=== PATIENT | male | born 1990 | race Caucasian/White ===

== ENCOUNTER 2023-09-27 17:55 | Emergency (ER) | payer OTHER ==
--- NOTE | 2023-09-27 18:17 | ED ---
Skin/Abscess/FB HPI - General Source: patient, RN notes reviewed Mode of arrival: ambulatory Limitations: no limitations <Ying Hoffman - Last Filed: 09/27/23 18:16> - General Source: RN notes reviewed <Nicole Pate - Last Filed: 09/27/23 23:15> - General Stated complaint: Rash Time Seen by Provider: 09/27/23 18:16 - History of Present Illness Initial comments: Quick note: 33-year-old male presented to the ER with chief complaint of a rash. Patient states he has been on for the past 2 weeks and his skin has been getting worse. He was seen by urgent care and prescribed amoxicillin and steroids. He states urgent care told him it was a strep rash. He states the rash is everywhere and pruritic. He denies any fevers. (Ying Hoffman) 33-year-old male presenting to the ER with rash x 2 weeks. Patient states he was diagnosed with post strep rash at urgent care 4 days ago and has been taking amoxicillin and steroids. He reports that, despite taking the medications, the rash is worsening and is extremely itchy. States the rash is everywhere including trunk, and extremities, face, and palms and soles. States he had a sore throat prior to the rash. Denies recent travel, recent hiking or exposure to brush. States he believes he is up-to-date on his vaccinations. Denies new lotions, soaps, detergents, medications. Denies fever or nausea and vomiting. (Nicole Pate) - Related Data Allergies Allergy/AdvReac Type Severity Reaction Status Date / Time No Known Allergies Allergy Verified 09/27/23 18:20 Review of Systems ROS Other: All systems not noted in ROS Statement are negative. <Ying Hoffman - Last Filed: 09/27/23 18:16> ROS Other: All systems not noted in ROS Statement are negative. <Nicole Pate - Last Filed: 09/27/23 23:15> ROS Statement: Those systems with pertinent positive or pertinent negative responses have been documented in the HPI. General Exam <Ying Hoffman - Last Filed: 09/27/23 18:16> General appearance: alert, in no apparent distress Head exam: Present: atraumatic, normocephalic, normal inspection Eye exam: Present: normal appearance, PERRL, EOMI. Absent: scleral icterus, conjunctival injection, periorbital swelling ENT exam: Present: normal exam, mucous membranes moist Neck exam: Present: normal inspection. Absent: tenderness, meningismus, lymph adenopathy Respiratory exam: Present: normal lung sounds bilaterally. Absent: respiratory distress, wheezes, rales, rhonchi, stridor Cardiovascular Exam: Present: regular rate, normal rhythm, normal heart sounds. Absent: systolic murmur, diastolic murmur, rubs, gallop, clicks Psychiatric exam: Present: normal affect, normal mood Skin exam: Present: warm, dry, rash (Diffuse maculopapular rash present on trunk, back, upper and lower extremities, palms, and soles. There is no warmth or drainage.) <Nicole Pate - Last Filed: 09/27/23 23:15> - General Exam Comments Initial Comments: Visual Physical Exam Vital signs reviewed General: Well-appearing, nontoxic, no acute distress. Head: Normocephalic, atraumatic Eyes: PERRLA, EOMI ENT: Airway patent Chest: Nonlabored breathing Skin: Rash on bilateral legs and torso normal skin tone Neuro: Alert and oriented 3 Musculoskeletal: No gross abnormalities (Ying Hoffman) Course Vital Signs 09/27/23 09/27/23 18:16 22:48 Temperature 98.6 F 98.5 F Pulse Rate 79 72 Respiratory 18 18 Rate Blood Pressure 140/87 131/78 O2 Sat by Pulse 99 99 Oximetry Medical Decision Making <Ying Hoffman - Last Filed: 09/27/23 18:16> - Lab Data Result diagrams: 09/27/23 20:40 09/27/23 20:40 <Nicole Pate - Last Filed: 09/27/23 23:15> - Medical Decision Making I performed the quick note portion of this chart. Electronically signed by Ying Hoffman PA-C (Ying Hoffman) Was pt. sent in by a medical professional or institution ([facility], INFORMATION ANALYST, urgent care, hospital, or senior care...) When possible be specific @ -No Did you speak to anyone other than the patient for history (EMS, parent, family, police, friend...)? What history was obtained from this source @ -No Did you review nursing and triage notes (agree or disagree)? Why? @ -I reviewed and agree with nursing and triage notes Were old charts reviewed (outside hosp., previous admission, EMS record, old EKG, old radiological studies, urgent care reports/EKG's, senior care records)? Report findings @ -No old charts were reviewed Differential Diagnosis (chest pain, altered mental status, abdominal pain women, abdominal pain men, vaginal bleeding, weakness, fever, dyspnea, syncope, headache, dizziness, GI bleed, back pain, seizure, CVA, palpatations, mental health, musculoskeletal)? @ -Scarlet fever, chickenpox, syphilis, contact dermatitis, cellulitis, atopic dermatitis EKG interpreted by me (3pts min.). @ -None X-rays interpreted by me (1pt min.). @ -None done CT interpreted by me (1pt min.). @ -None done U/S interpreted by me (1pt. min.). @ -None done What testing was considered but not performed or refused? (CT, X-rays, U/S, labs)? Why? @ -None What meds were considered but not given or refused? Why? @ -None Did you discuss the management of the patient with other professionals (professionals i.e. , PA, INFORMATION ANALYST, lab, RT, psych nurse, social psychologist, regulatory affairs analyst, teacher, staff command and control officer, case liner)? Give summary @ -No Was smoking cessation discussed for >3mins.? @ -No Was critical care preformed (if so, how long)? @ -No Were there social determinants of health that impacted care today? How? (Homelessness, low income, unemployed, alcoholism, drug addiction, transportation, low edu. Level, literacy, decrease access to med. care, longterm, rehab)? @ -No Was there de-escalation of care discussed even if they declined (Discuss DNR or withdrawal of care, Hospice)? DNR status @ -No What co-morbidities impacted this encounter? (DM, HTN, Smoking, COPD, CAD, Canc er, CVA, ARF, Chemo, Hep., AIDS, mental health diagnosis, sleep apnea, morbid obesity)? @ -None Was patient admitted / discharged? Hospital course, mention meds given and route, prescriptions, significant lab abnormalities, going to OR and other pertinent info. @ -Patient was discharged. Patient was seen and evaluated for rash x 2 weeks. Patient was recently diagnosed with "post strep rash" at urgent care 4 days ago and has been taking amoxicillin and steroids, however reports rash is continuing to worsen. Patient is afebrile, vitals are stable. Physical examination consistent with diffuse maculopapular rash including palms and soles. Lab work remarkable for elevated white blood cell count. Rapid strep positive. Discussed confirmed diagnosis of scarlet fever with patient. Discussed importance of continuing amoxicillin course. Patient given Benadryl injection for itching. Strict alarm/return symptoms discussed with patient and patient shows understanding and agrees. Discussed follow-up with PCP. Patient discharged in stable condition. Case discussed with Dr. Grissom. Undiagnosed new problem with uncertain prognosis? @ -No Drug Therapy requiring intensive monitoring for toxicity (Heparin, Nitro, Insulin, Cardizem)? @ -No Were any procedures done? @ -No Diagnosis/symptom? @ -Scarlet fever Acute, or Chronic, or Acute on Chronic? @ -Acute Uncomplicated (without systemic symptoms) or Complicated (systemic symptoms)? @ -Uncomplicated Side effects of treatment? @ -No Exacerbation, Progression, or Severe Exacerbation? @ -No Poses a threat to life or bodily function? How? (Chest pain, [place], [place], pneumonia, PE, COPD, DKA, ARF, appy, cholecystitis, CVA, Diverticulitis, Homicidal, Suicidal, threat to staff... and all critical care pts) @ -No (Nicole Pate) - Lab Data Lab Results 09/27/23 09/27/23 09/27/23 Range/Units 20:40 20:40 20:40 WBC 16.1 H (3.8-10.6) k/uL RBC 5.37 (4.30-5.90) m/uL Hgb 16.5 (13.0-17.5) gm/dL Hct 50.8 (39.0-53.0) % MCV 94.7 (80.0-100.0) fL MCH 30.8 (25.0-35.0) pg MCHC 32.5 (31.0-37.0) g/dL RDW 12.0 (11.5-15.5) % Plt Count 386 (150-450) k/uL MPV 6.8 Neutrophils % 74 % Lymphocytes % 19 % Monocytes % 4 % Eosinophils % 2 % Basophils % 1 % Neutrophils # 12.0 H (1.3-7.7) k/uL Lymphocytes # 3.0 (1.0-4.8) k/uL Monocytes # 0.7 (0-1.0) k/uL Eosinophils # 0.3 (0-0.7) k/uL Basophils # 0.1 (0-0.2) k/uL Sodium 138 (137-145) mmol/L Potassium 4.4 (3.5-5.1) mmol/L Chloride 103 (98-107) mmol/L Carbon Dioxide 27 (22-30) mmol/L Anion Gap 8 mmol/L BUN 16 (9-20) mg/dL Creatinine 0.80 (0.66-1.25) mg/dL Est GFR (CKD-EPI)AfAm >90 (>60 ml/min/1.73 sqM) Est GFR (CKD-EPI)NonAf >90 (>60 ml/min/1.73 sqM) Glucose 92 (74-99) mg/dL Calcium 9.4 (8.4-10.2) mg/dL Total Bilirubin 0.4 (0.2-1.3) mg/dL AST 29 (17-59) U/L ALT 15 (4-49) U/L Alkaline Phosphatase 74 (38-126) U/L Total Protein 8.1 (6.3-8.2) g/dL Albumin 4.5 (3.5-5.0) g/dL Group A Strep (PCR) DETECTED A (Not Detectd) Disposition <Ying Hoffman - Last Filed: 09/27/23 18:16> Is patient prescribed a controlled substance at d/c from ED?: No Time of Disposition: 21:56 <Nicole Pate - Last Filed: 09/27/23 23:15> Clinical Impression: Scarlet fever Disposition: HOME SELF-CARE Condition: Stable Instructions (If sedation given, give patient instructions): Scarlet Fever (ED) Additional Instructions: Please return to the Emergency Department if symptoms worsen or any other concerns. Referrals: None,Stated [Primary Care Provider] - 1-2 days
[2023-09-27 18:40] VITALS: RESP 18
[2023-09-27 20:55] LABS: Basophils # (A) 0.1 k/uL (0-0.2); Basophils % (A) 1 %; Eosinophils # (A) 0.3 k/uL (0-0.7); Eosinophils % (A) 2 %; HCT 50.8 % (39.0-53.0); HGB 16.5 gm/dL (13.0-17.5); Lymphocytes % (A) 19 %; MCH 30.8 pg (25.0-35.0); MCHC 32.5 g/dL (31.0-37.0); MCV 94.7 fL (80.0-100.0); Mean Platelet Volume 6.8; Monocytes # (A) 0.7 k/uL (0-1.0); Monocytes % (A) 4 %; Neutrophils % (A) 74 %; Platelet Count 386 k/uL (150-450); RBC 5.37 m/uL (4.30-5.90); WBC 16.1 k/uL (3.8-10.6)
[2023-09-27 22:23] LABS: Potassium 4.4 mmol/L (3.5-5.1)
[2023-09-27 22:24] LABS: ALT 15 U/L (4-49); AST 29 U/L (17-59); African American GFR (CKD) >90 (>60 ml/min/1.73 sqM); Albumin 4.5 g/dL (3.5-5.0); Alkaline Phosphatase 74 U/L (38-126); Anion Gap 8 mmol/L; Blood Urea Nitrogen 16 mg/dL (9-20); Calcium 9.4 mg/dL (8.4-10.2); Carbon Dioxide 27 mmol/L (22-30); Chloride 103 mmol/L (98-107); Glucose 92 mg/dL (74-99); Non-African American GFR(CKD) >90 (>60 ml/min/1.73 sqM); Sodium 138 mmol/L (137-145); Total Bilirubin 0.4 mg/dL (0.2-1.3); Total Protein 8.1 g/dL (6.3-8.2)
[2023-09-27] MEDS: diphenhydrAMINE 50 MG/ML 1 ML VIAL IM STA (22:25)
[2023-09-27 23:19] VITALS: BP 131/78; PULSE 72; TEMP 98.5
== END 2023-09-27 22:50 | disposition home or self-care (01) ==
LOC: EC 17:55
DX: A38.9 Scarlet fever, uncomplicated (principal); B95.0 Streptococcus, group A, as the cause of diseases classified elsewhere
CPT/HCPCS: 36415; 87651; 80053; 85025; 99283; 96372; J1200